=== PATIENT | female | born 1990 | race Caucasian/White ===

== ENCOUNTER 2016-09-21 07:45 | Emergency (ER) | payer OTHER ==
[2016-09-21 08:02] VITALS: BP 127/83
--- NOTE | 2016-09-21 11:14 | UC ---
Travis Naik Rebecca, scribed for Lisa Paul MD on 09/21/16 at 0930 . Neck Pain HPI - HPI Summary HPI Summary: Pt is a 26 y/o F who presents to [facility] c/o stiff neck and fever/chills. Sx began suddenly 3 days ago and have been constant since onset. Neck pain particularly worsened yesterday. Associated pain is ranked 5/10 and characterized as dull/stiff. Sx aggravated by turning the head laterally, alleviated by NyQuil (taken this morning at 0400). Additionally c/o diffuse body aches, "watery eyes" and "fluttering" in the L ear. L ear sx have been intermittent for 1 month. Denies ear pain, sore throat, nasal congestion, rhinorrhea. Denies spinal/back pain. Evaluated by an ENT approximately 1 month ago, which was normal. Confirms receiving influenza vaccine this year. LNMP 08/29. Allergy to amoxicillin. - History of Current Complaint Chief Complaint: UCRespiratory Stated Complaint: HEAD/NECK PAIN FEVER Time Seen by Provider: 09/21/16 09:23 Hx Obtained From: Patient Hx Last Menstrual Period: 08/29/16 Onset/Duration Of Injury/Symptoms: Days Mechanism Of Injury: No Known Trauma Timing: Constant Onset/Duration: Sudden Onset, Lasting Days - 3 days, Still Present Severity: Moderate Pain Intensity: 5 Pain Scale Used: 0-10 Numeric Location: Discrete At: - Neck Character: Dull, Stiff Aggravating Factors: Movement - laterally Alleviating Factors: OTC Meds - NyQuil Associated Signs & Symptoms: Positive: Fever - Risk Factors Meningitis Risk Factors: Negative - Allergies/Home Medications Allergies/Adverse Reactions: Allergies Allergy/AdvReac Type Severity Reaction Status Date / Time Amoxicillin Allergy Intermediate Rash Verified 09/21/16 08:02 Home Medications: Home Medications [id number] [Nyquil Severe Cold/Flu 5-6.25-10-325 mg/15Ml] 2 tbsp PO PRN 09/21/16 [History] PMH/Surg Hx/FS Hx/Imm Hx Previously Healthy: Yes Endocrine History Of: Denies: Diabetes Cardiovascular History Of: Denies: Hypertension - Surgical History Surgical History: None - Family History Known Family History: Positive: Other - [place] (grandmother) - Social History Occupation: Employed Full-time - [employer] Alcohol Use: Weekly Substance Use Type: None Smoking Status (MU): Never Smoked Tobacco - Immunization History Most Recent Influenza Vaccination: 04/19 Review Of Systems Constitutional: Positive: Fever, Chills, Other - Diffuse body aches Eyes: Positive: Drainage - "watery" eyes ENT: Positive: Other - "fluttering" in the L ear; Denies nasal congestion. Negative: Sore Throat, Ear Ache, Nasal Discharge Respiratory: Positive: Negative Cardiovascular: Positive: Negative Gastrointestinal: Positive: Negative Musculoskeletal: Positive: Other: - Neck stiffness (12/11) All Other Systems Reviewed And Are Negative: Yes Physical Exam Triage Information Reviewed: Yes Appearance: No Pain Distress, Well-Nourished, Ill-Appearing - mildly Vital Signs: Initial Vital Signs Temp 97.6 F 09/21/16 07:54 Pulse 86 09/21/16 07:54 Resp 16 09/21/16 07:54 BP 127/83 09/21/16 07:54 Pulse Ox 100 09/21/16 07:54 Vital Signs Reviewed: Yes Eyes: Positive: Conjunctiva Clear ENT: Positive: Pharynx normal, Other: - left TM with air fluid level, bubbles Neck: Positive: Supple - good chin to chest, Tenderness @ - poterior cervical and post auricular, Other: - Posterior cervical and posterior auricular lymphadenopathy Respiratory: Positive: Lungs clear, Normal breath sounds, No respiratory distress Cardiovascular: Positive: RRR, No Murmur, Pulses Normal, Brisk Capillary Refill Musculoskeletal: Positive: Strength Intact, ROM Intact, Other: - No spinal tenderness; Negative Kernig's and negative Brudzinski's sign Neurological: Positive: Alert, Muscle Tone Normal Psychological Exam: Normal Skin Exam: Normal Re-Evaluation - Re-Evaluation First Eval Re-Evaluation Time: 10:05 Change: Improved Comment: Discussed influenza results with pt. Pt agrees to a prescription for Sudafed to treat sx. Advises Sudafed treatment for 4-5 days. Confirms that NyQuil can replace night Sudafed doseage to aid with sleep. Advised Acetaminophen to treat "fluttering" in the ear, and to avoid aspirin and ibuprofen because of tinnitus. Additionally referred pt to ENT that she had seen previously (Dr. Lopez). Advised that if severe ear pain presents that she should be re-evaluated. Discussed meningitis symptoms and why no Abx are being prescribed. Neck Pain Course/Dx - Course Course Of Treatment: In pt with reported fever and neck stiffness, do have to consider meningitis, but do not think pt has this at this time. Neck is supple , tenderness is along lymphnodes, not at spine and no fever now. Allergies noted. Inlfuenza A and Influenza B are both negative. - Differential Dx/Diagnosis Differential Dx/HQI/PQRI: Meningitis, Sprain, Strain Provider Diagnoses: viral syndrome. serous otitis Discharge - Discharge Plan Condition: Stable Disposition: HOME Prescriptions: Pseudoephedrine TAB* [Sudafed TAB*] 30 mg PO Q6H PRN #20 tab PRN Reason: Congestion Patient Education Materials: Serous Otitis Media (ED), Tinnitus (ED) Referrals: Laurie Patton MD [Primary Care Provider] - Rufino Lopez MD [Medical Doctor] - 3 Days Additional Instructions: If fever (above 100.5) and neck pain present, be evaluated by ED. RETURN TO URGENT CARE FOR ANY RETURNING OR WORSENING SYMPTOMS. The documentation as recorded by the Travis mata Rebecca accurately reflects the service I personally performed and the decisions made by , Lisa Paul MD.
== END 2016-09-21 10:22 | disposition home or self-care (01) ==
LOC: UCEAST 07:45
DX: B34.9 Viral infection, unspecified (principal); H65.90 Unspecified nonsuppurative otitis media, unspecified ear
CPT/HCPCS: 87502; 99212; G0463

== ENCOUNTER 2017-06-28 23:40 | Emergency (ER) | payer OTHER ==
--- NOTE | 2017-06-29 00:07 | ED ---
Throat Pain/Nasal Congestion - HPI Summary HPI Summary: 27F presents with sore throat for two days. She admits to fever. She denies any SOB, chest pain, cough, sinus congestion. She admits to nausea. She denies any vomiting. She admits to fatigue. She has been taking Tylenol for her pain. She has PMH of strept. She is currently taking the typhoid vaccine as it traveling starting Friday. She has to take the last dose today. She took three of the doses already. She has been taking tamiflu for her symptoms. pain is 6/ 10. She is still able to eat and drink okay but does have pain on swallowing. - History of Current Complaint Chief Complaint: EDThroatPain Time Seen by Provider: 06/28/17 23:50 - Allergies/Home Medications Allergies/Adverse Reactions: Allergies Allergy/AdvReac Type Severity Reaction Status Date / Time Amoxicillin Allergy Intermediate Rash Verified 09/21/16 08:02 PMH/Surg Hx/FS Hx/Imm Hx Endocrine/Hematology History: Denies: Hx Diabetes Cardiovascular History: Denies: Hx Hypertension Infectious Disease History: No Infectious Disease History: Denies: Traveled Outside the [place] in Last 30 Days - Family History Known Family History: Positive: Other - [place] (grandmother) - Social History Alcohol Use: Weekly Substance Use Type: Reports: None Smoking Status (MU): Never Smoked Tobacco Review of Systems Positive: Fever Positive: Sore Throat Negative: Chest Pain Negative: Shortness Of Breath All Other Systems Reviewed And Are Negative: Yes Physical Exam Triage Information Reviewed: Yes Vital Signs On Initial Exam: Initial Vitals Temp Pulse Resp BP Pulse Ox 97.8 F 111 16 111/70 95 06/28/17 23:43 06/28/17 23:43 06/28/17 23:43 06/28/17 23:43 06/28/17 23:43 Vital Signs Reviewed: Yes Appearance: Positive: Well-Appearing Skin: Positive: Warm, Dry Head/Face: Positive: Normal Head/Face Inspection Eyes: Positive: Normal, EOMI, SENAIT, Conjunctiva Clear ENT: Positive: Pharyngeal erythema, TMs normal, Tonsillar swelling - +2, Tonsillar exudate, Uvula midline, Other - soft palate symmetric. Negative: Trismus, Muffled voice Neck: Positive: Supple, Tenderness @ - cervical lymph nodes Respiratory/Lung Sounds: Positive: Clear to Auscultation, Breath Sounds Present Cardiovascular: Positive: Normal, RRR Abdomen Description: Positive: Nontender, Soft Bowel Sounds: Positive: Present Musculoskeletal: Positive: Normal Neurological: Positive: Normal Psychiatric: Positive: Normal Diagnostics - Vital Signs Vital Signs Temp Pulse Resp BP Pulse Ox 06/28/17 23:43 97.8 F 111 16 111/70 95 - Laboratory Lab Statement: Any lab studies that have been ordered have been reviewed, and results considered in the medical decision making process. EENT Course/Dx - Course Course Of Treatment: 27F presents with sore throat for two days. She admits to fever. She denies any SOB, chest pain, cough, sinus congestion. She admits to nausea. She denies any vomiting. She admits to fatigue. She has been taking Tylenol for her pain. She has PMH of strept. She is currently taking the typhoid vaccine as it traveling starting Friday. She has to take the last dose today. She has been taking tamiflu for her symptoms. pain is 6/10. on exam uvula midline, soft palate symmetric, tonsil+2 with exudate, neg trismus. strept is pos. discussed that should stop typhoid vaccine and start antibiotic. dr redmond is not available but gave number to office for patient to ask if should restart it or not. patient has zpack at home as is allergic to PCN and wants to take medication has at home. patient understand and agrees with plan. - Differential Diagnoses Differential Diagnoses: Pharyngitis, Tonsilitis, URI/Bronchitis, Other - strept , mono - Diagnoses Provider Diagnoses: Streptococcal sore throat Discharge - Discharge Plan Condition: Good Disposition: HOME Patient Education Materials: Strep Throat (ED) Referrals: Laurie Patton MD [Primary Care Provider] - Ayush RUTH,Marcello Fernandez [Medical Doctor] - Additional Instructions: Take zpack have at home Take tyenlol or ibuprofen for fever every [address] Redmond to discuss typhoid vaccine on Friday Return to ED if develop any new or worsening symptoms
[2017-06-29 00:30] LABS: EBV Response YES
[2017-06-29 00:53] LABS: Manual Entry Verification CAR0052; Mono Internal Control QC Line Present
[2017-06-29 01:01] VITALS: BP 125/75
[2017-07-01 11:16] LABS: EBV Capsid Ag IgG Ab Positive (Negative); EBV Capsid Ag IgM Ab Negative (Negative)
== END 2017-06-29 00:56 | disposition home or self-care (01) ==
LOC: ED 23:40
DX: J02.0 Streptococcal pharyngitis (principal); R50.9 Fever, unspecified
CPT/HCPCS: 36415; 86308; 86664; 86665; 87651; 99282